=== PATIENT | female | born 1945 | race Caucasian/White ===

== ENCOUNTER 2023-12-31 13:13 | Emergency (ER) | payer MEDICARE, OTHER ==
[~2023-12-31] VITALS: Ht 162.6 cm; Wt 59.0 kg
[2023-12-31 13:20] VITALS: O2SAT 100
[2023-12-31] MEDS ORDERED: SILVER SULFADIAZINE 1% CREAM 50 GM TP ONE (13:35)
[2023-12-31] MEDS: SILVER SULFADIAZINE 1% CREAM 50 GM TP ONE (13:46)
== END 2023-12-31 13:55 | disposition home or self-care (01) ==
LOC: ER 13:13
DX: T25.211A Burn of second degree of right ankle, initial encounter (principal); X08.8XXA Exposure to other specified smoke, fire and flames, initial encounter; Y93.89 Activity, other specified; Y92.89 Other specified places as the place of occurrence of the external cause; Y99.8 Other external cause status
CPT/HCPCS: 16020; A4606; A4663

== ENCOUNTER 2025-07-16 19:00 | Inpatient (IN) | payer MEDICARE, OTHER ==
[~2025-07-16] VITALS: Ht 162.6 cm; Wt 70.4 kg
[2025-07-16 20:04] LABS: PLATELET COUNT (AUTO) 246 K/uL (179-408); RED BLOOD CELL COUNT(AUTO) 4.44 MIL/uL (3.63-4.92); RED CELL DISTRIBUTION WIDTH 19.5 % (12.3-17.7); WHITE BLOOD COUNT (AUTO) 6.3 K/uL (3.8-11.8)
[2025-07-16 20:17] LABS: CREATININE 1.8 mg/dL (0.6-1.3); SODIUM SERUM 136 mmol/L (136-145); UREA NITROGEN, BLOOD 52 mg/dL (7-18)
[2025-07-16 20:23] LABS: ASPARTATE AMINOTRANSFERASE 37 U/L (15-37); TOTAL PROTEIN, SERUM 6.9 g/dL (6.4-8.2)
[2025-07-16] MEDS ORDERED: PIPERACILLIN SODIUM/TAZOBACTAM 3.375 G in IV DEXTROSE 5% 50 ML IV ONE (21:00)
[2025-07-16] MEDS ORDERED: PIPERACILLIN/TAZOBACTAM/D5W 50 ML IV ONE (21:04)
[2025-07-16] MEDS ORDERED: METRONIDAZOLE 500 MG/NS 100 ML PIGGYBACK IV ONE (21:15)
[2025-07-16] MEDS ORDERED: MORPHINE SULFATE 2 MG/1 ML DISP.SYRIN IV PRN (23:45)
[2025-07-16] MEDS ORDERED: SODIUM ZIRCONIUM CYCLOSILICATE 10 GM POWD.PACK PO ONE (23:45)
[2025-07-16] MEDS ORDERED: ACETAMINOPHEN 325 MG TABLET PO PRN (23:45)
[2025-07-16] MEDS ORDERED: REMEDY ESSENTIAL ZINC PASTE 113 GM TP PRN (23:45)
[2025-07-16] MEDS ORDERED: ONDANSETRON 4 MG/2 ML VIAL IV PRN (23:45)
[2025-07-16] MEDS ORDERED: IV D5W-0.45% NS +20 KCL 1,000 ML IV PRN (23:45)
[2025-07-17 04:00] VITALS: BP 104/72
[2025-07-17] MEDS ORDERED: IV D5W-0.45% NS +20 KCL 1,000 ML IV PRN (05:45)
[2025-07-17] MEDS ORDERED: PIPERACILLIN SODIUM/TAZOBACTAM 3.375 G in IV DEXTROSE 5% 50 ML IV SCH (06:00)
[2025-07-17 07:16] LABS: PLATELET COUNT (AUTO) 235 K/uL (179-408); RED BLOOD CELL COUNT(AUTO) 4.39 MIL/uL (3.63-4.92); RED CELL DISTRIBUTION WIDTH 19.3 % (12.3-17.7); WHITE BLOOD COUNT (AUTO) 5.7 K/uL (3.8-11.8)
[2025-07-17 07:43] LABS: CREATININE 1.6 mg/dL (0.6-1.3); SODIUM SERUM 134 mmol/L (136-145); UREA NITROGEN, BLOOD 50 mg/dL (7-18)
[2025-07-17 08:00] VITALS: BP 111/66; TEMP 98; O2SAT 98
[2025-07-17] MEDS: PANTOPRAZOLE SODIUM 40 MG VIAL IV SCH (08:38)
[2025-07-17] MEDS: PIPERACILLIN SODIUM/TAZOBACTAM 3.375 G in IV DEXTROSE 5% 50 ML IV ONE (09:08)
[2025-07-17 11:30] VITALS: BP 98/68; TEMP 97.4; O2SAT 98
[2025-07-17] MEDS ORDERED: DEXL60CA3 PO (11:37)
[2025-07-17] MEDS ORDERED: AMIO200T5 PO (11:37)
[2025-07-17] MEDS ORDERED: DAPA5TAB PO (11:37)
[2025-07-17] MEDS ORDERED: METF-440 PO (11:38)
[2025-07-17] MEDS ORDERED: SACU1TAB7 PO (11:39)
[2025-07-17] MEDS ORDERED: CLOP75TA33 PO (11:40)
[2025-07-17] MEDS ORDERED: LEVO25TA9 PO (11:40)
[2025-07-17] MEDS ORDERED: CARV12.52 PO (11:41)
[2025-07-17] MEDS ORDERED: ASPI81TA31 PO (11:41)
[2025-07-17] MEDS ORDERED: ALIR150P3 SQ (11:44)
[2025-07-17] MEDS ORDERED: DENO60DI SQ (11:46)
[2025-07-17] MEDS ORDERED: SPIR25TA PO (11:58)
[2025-07-17] MEDS ORDERED: FURO40TA5 PO (12:01)
[2025-07-17] MEDS: SODIUM ZIRCONIUM CYCLOSILICATE 10 GM POWD.PACK PO ONE (12:28)
[2025-07-17] MEDS: FUROSEMIDE 40 MG TABLET PO SCH (12:35)
[2025-07-17] MEDS: PIPERACILLIN SODIUM/TAZOBACTAM 3.375 G in IV DEXTROSE 5% 100 ML IV SCH (14:06)
[2025-07-17 15:13] LABS: CREATININE 1.6 mg/dL (0.6-1.3); SODIUM SERUM 136 mmol/L (136-145); UREA NITROGEN, BLOOD 48 mg/dL (7-18)
[2025-07-17 15:42] VITALS: BP 97/61; TEMP 97.5; O2SAT 96
[2025-07-17 16:08] LABS: *BILIRUBIN,URIN NEGATIVE (NEGATIVE); *BLOOD, URINE TRACE (NEGATIVE); *COLOR,URINE YELLOW (YELLOW); *KETONES,URINE NEGATIVE (NEGATIVE); *PROTEIN,URINE 2+ (NEGATIVE); *UROBILINOGEN,URINE 1.0 E.U./dl (NORMAL); LEUKOCYTE ESTERASE ,URINE 2+ (NEGATIVE); NITRITE, URINE POSITIVE (NEGATIVE); UGLUCOSE NEGATIVE (NEGATIVE)
[2025-07-17 16:09] LABS: *CLARITY,URINE SLIGHTLY HAZY (CLEAR)
[2025-07-17 16:16] LABS: *CREATININE,URINE 91.7 mg/dL (30-125); *SODIUM RNDM,URINE 24.0 mmol/L (40-220); *URINE TOTAL PROTEIN RANDOM 79.8 mg/dL (<150/24HR)
[2025-07-17 16:46] LABS: SQUAMOUS EPITHELIAL CELL,UR MODERATE /HPF (NONE SEEN)
[2025-07-17] MEDS: SODIUM ZIRCONIUM CYCLOSILICATE 10 GM POWD.PACK PO SCH (17:30)
[2025-07-17 19:00] VITALS: BP 96/63; TEMP 97.7; O2SAT 95
[2025-07-18] VITALS: BP 96/58; TEMP 97.7; O2SAT 98
[2025-07-18 04:00] VITALS: BP 99/58; TEMP 97.6; O2SAT 96
[2025-07-18 06:49] LABS: PLATELET COUNT (AUTO) 227 K/uL (179-408); RED BLOOD CELL COUNT(AUTO) 4.22 MIL/uL (3.63-4.92); RED CELL DISTRIBUTION WIDTH 18.9 % (12.3-17.7); WHITE BLOOD COUNT (AUTO) 5.1 K/uL (3.8-11.8)
[2025-07-18 07:01] LABS: ASPARTATE AMINOTRANSFERASE 40 U/L (15-37); CREATINE KINASE, TOTAL 22 U/L (26-192); CREATININE 1.6 mg/dL (0.6-1.3); SODIUM SERUM 139 mmol/L (136-145); TOTAL PROTEIN, SERUM 5.7 g/dL (6.4-8.2); UREA NITROGEN, BLOOD 48 mg/dL (7-18)
[2025-07-18 07:40] VITALS: BP 98/64; TEMP 97.5; O2SAT 95
[2025-07-18 11:30] VITALS: BP 97/48; TEMP 97.6; O2SAT 98
[2025-07-18] MEDS ORDERED: AMOX-430 PO (12:36)
[2025-07-18] MEDS ORDERED: FURO40TA5 PO (12:36)
[2025-07-18 16:00] VITALS: BP 91/48; TEMP 97.6; O2SAT 96
[2025-07-19] MEDS ORDERED: PANTOPRAZOLE SODIUM 40 MG TABLET.DR PO SCH (07:00)
[2025-07-19 08:07] LABS: PTH, INTACT 46 pg/mL (15-65)
== END 2025-07-18 17:30 | disposition home or self-care (01) | DRG 391 ==
LOC: ER 19:20 → TELE3 07-17 05:23 → MEDSURG3 07-18 11:00
PROVIDERS: ADMIT Nurse Practitioner Acute Care; ATTEND Nurse Practitioner Acute Care
DX: K57.20 Diverticulitis of large intestine with perforation and abscess without bleeding (principal); I21.4 Non-ST elevation (NSTEMI) myocardial infarction; I50.23 Acute on chronic systolic (congestive) heart failure; E87.1 Hypo-osmolality and hyponatremia; E87.20 Acidosis, unspecified; N17.9 Acute kidney failure, unspecified; E87.5 Hyperkalemia; I25.2 Old myocardial infarction; Z95.5 Presence of coronary angioplasty implant and graft; I25.5 Ischemic cardiomyopathy; E03.9 Hypothyroidism, unspecified; Z95.810 Presence of automatic (implantable) cardiac defibrillator; M81.0 Age-related osteoporosis without current pathological fracture; M89.8X9 Other specified disorders of bone, unspecified site; E86.9 Volume depletion, unspecified; I25.10 Atherosclerotic heart disease of native coronary artery without angina pectoris; E11.9 Type 2 diabetes mellitus without complications; Z86.74 Personal history of sudden cardiac arrest; Z79.02 Long term (current) use of antithrombotics/antiplatelets; Z79.899 Other long term (current) drug therapy; Z79.82 Long term (current) use of aspirin; Z79.84 Long term (current) use of oral hypoglycemic drugs
CPT/HCPCS: 36415; 71045; 76770; 83605; 83690; 83735; 83970; 84100; 84155; 84165; 84300; 84484; 85025; 87040; 87086; 93307; A4606; A4663; G0378; J2470; J2543